=== PATIENT | female | born 1955 | race American Indian/Alaskan Native ===

== ENCOUNTER 2017-05-18 10:21 | Outpatient (CLI) | payer BC, OTHER | END 2017-05-18 10:22 | disposition home or self-care (01) | LOC: LABHHL 10:21 | PROVIDERS: ATTEND Surgery | DX: C50.912 Malignant neoplasm of unspecified site of left female breast (principal) | CPT/HCPCS: 88305; 88342; 88361 ==

== ENCOUNTER 2017-06-05 02:50 | Outpatient (CLI) | payer BC ==
--- NOTE | 2017-06-06 16:22 | Magnetic Resonance Report ---
BILATERAL BREAST MRI WITHOUT AND WITH CONTRAST: 06/05/17 15:00:00 CLINICAL: Newly diagnosed left breast cancer. Status post ultrasound-guided needle biopsy of the left breast at 2 sites 05/17/17. Biopsy at 12 o'clock 4 cm from the nipple revealed scattered foci of invasive carcinoma of the special type in a background of extensive ductal carcinoma in situ, intermediate nuclear grade, Ventura histologic grade moderately differentiated. Biopsy at 12 o'clock 2 cm from the nipple revealed similar pathology. COMPARISON:05/14/17 bilateral mammogram.. TECHNIQUE: Axial 1.0-mm T1 without, axial high resolution 2.0-mm T2 and axial 1.0-mm dynamic Vibrant high-resolution postcontrast T1 fat saturation sequences on a 1.5 Karley magnet. The examination was performed with an 8 channel dedicated Sentinelle breast coil. Post processing with CAD and subtraction was performed on an [employer] workstation. 15.0 cc of Multihance was injected for the contrast portion of the exam. Consent was obtained prior to the administration of the contrast. The patient vomited with the contrast injection. FINDINGS: The quality of the examination is degraded by patient motion and resultant misregistration on most of the sequences. Right: Marked background parenchymal enhancement. No mass or suspicious enhancement. No suspicious lymph nodes. Left: The left breast is larger than the right. Marked background parenchymal enhancement. An irregular enhancing mass in the upper inner quadrant correlates with the known cancer and measures 6.7 x 4.9 x 3.4 cm. It demonstrates heterogeneous enhancement with extension at its, 541% peak enhancement and 35% type III washout. Both biopsy clips are identified within this mass. A second mass is located subareolar and measures 3.7 x 3.2 x 1.9 cm in the lower inner quadrant. It demonstrates heterogeneous enhancement with mixed kinetics, 163% peak enhancement and 21% type III washout. 2 suspicious level I axillary lymph nodes. The largest measures 1.6 cm with a cortical thickness and 5 mm. IMPRESSION: 1. Multicentric left breast cancer and two suspicious level I axillary lymph nodes. 2. Negative right breast. RIGHT BI-RADS 1 -- Negative LEFT BI-RADS 6 -- Known Cancer
== END 2017-06-05 02:51 | disposition home or self-care (01) ==
LOC: SPVIMAG 02:50
PROVIDERS: ATTEND Surgery
DX: C50.412 Malignant neoplasm of upper-outer quadrant of left female breast (principal)
CPT/HCPCS: A9577; C8908; 77059

== ENCOUNTER 2017-06-19 14:39 | Outpatient (CLI) | payer BC ==
--- NOTE | 2017-06-20 13:47 | Magnetic Resonance Report ---
BILATERAL BREAST MRI WITHOUT AND WITH CONTRAST: 06/19/17 14:39:00 CLINICAL: Newly diagnosed left breast cancer. Status post ultrasound-guided needle biopsy of the left breast at 2 sites 05/17/17. Biopsy at 12 o'clock 4 cm from the nipple revealed scattered foci of invasive carcinoma of type in a background of extensive ductal carcinoma in situ, intermediate nuclear grade. Biopsy at 12 o'clock 2 cm from the nipple revealed similar pathology. This study is being repeated since the prior examination was compromised by patient motion after she vomited at the time of the contrast injection. Although I did render a report for that examination, the current examination is of superior quality and should supplant that exam and report. COMPARISON:05/14/17 bilateral mammogram and 06/05/17 breast MRI. TECHNIQUE: Axial 1.0-mm T1 without, axial high resolution 2.0-mm T2 and axial 1.0-mm dynamic Vibrant high-resolution postcontrast T1 fat saturation sequences on a 1.5 Karley magnet. The examination was performed with an 8 channel dedicated Sentinelle breast coil. Post processing with CAD and subtraction was performed on an [employer] workstation. 19.0 cc of Multihance was injected without incident for the contrast portion of the exam. Consent was obtained prior to the administration of the contrast. FINDINGS: Right: Marked background parenchymal enhancement. No mass or suspicious enhancement. No suspicious lymph nodes. Left: Marked background parenchymal enhancement. An irregular enhancing mass extends from twelve to 1 o'clock approximately 6.3 cm from the nipple measures approximately 2.3 x 1.2 x 1.0 cm. A biopsy clip is identified adjacent to the mass. It demonstrates heterogeneous enhancement with mixed kinetics, 410% peak enhancement and 52% type III washout. This mass and a second biopsy clip posterior to the nipple at 12 o'clock are encompassed by extensive reticular non-Mass enhancement. The mass plus the non-Mass enhancement together measure approximately 6.5 x 3.5 x 3.3 cm. The non-Mass enhancement extends to within 17 mm of the nipple. No other enhancing mass is identified. Two suspicious lymph nodes in the axillary tail. The larger measures 1.3 cm with a cortical thickness of 6 mm. A more posterior lymph node has no central fat and measures 1.1 x 0.4 cm. IMPRESSION: 1. Multicentric left breast cancer. Highly suspicious non-Mass enhancement at 12 to 1 o'clock in the left breast measures 6.5 x 3.5 x 3.3 cm and encompasses a 2.3 cm solid mass and the two biopsy positive sites of cancer. 2. Two suspicious left axillary tail lymph nodes. 3. Negative right breast. RIGHT BI-RADS 1 -- Negative LEFT BI-RADS 6 -- Known Cancer
== END 2017-06-19 14:40 | disposition home or self-care (01) ==
LOC: SPVIMAG 14:39
PROVIDERS: ATTEND Surgery
DX: C50.412 Malignant neoplasm of upper-outer quadrant of left female breast (principal)
CPT/HCPCS: A9577; C8908; 77059

== ENCOUNTER 2017-06-27 12:47 | Outpatient (CLI) | payer BC ==
--- NOTE | 2017-06-27 16:10 | Ultrasound Report ---
ULTRASOUND GUIDED NEEDLE CORE BIOPSY OF A LEFT AXILLARY LYMPH NODE WITH CLIP PLACEMENT : 06/27/17 12:47:00 CLINICAL: Known left breast cancer and 2 suspicious lymph nodes by recent MRI. COMPARISON :06/19/17 MRI Breast FINDINGS: The procedure was explained to the patient and informed consent was obtained. Ultrasound demonstrated two lymph nodes in the axillary tail this correlate with the MRI finding. However, the larger lymph node demonstrates no cortical thickening with the cortex measuring less than 4 mm. A smaller lymph node has minimal if any central fat. I chose this lymph node for biopsy. The skin in the axilla was prepped with Betadine and anesthetized with 1% lidocaine. Ultrasound guided needle core biopsy of the lymph node was performed through a small dermatotomy using 2% lidocaine with epinephrine for deep anesthesia and a 18-gauge Achieve biopsy device. 2 samples were obtained and placed in formalin. A clip was deployed within the lymph node. Hemostasis was achieved with minimal pressure and a sterile dressing was applied. The patient tolerated the procedure well and there were no apparent complications. She was discharged in good condition and was given instructions for wound care and followup. IMPRESSION: Uncomplicated ultrasound-guided needle core biopsy of a left lymph node with clip placement.
== END 2017-06-27 12:48 | disposition home or self-care (01) ==
LOC: SPVWC 12:47
PROVIDERS: ATTEND Surgery
DX: C50.411 Malignant neoplasm of upper-outer quadrant of right female breast (principal)
CPT/HCPCS: 38505; 88305; 88342

== ENCOUNTER 2017-07-25 08:33 | Inpatient (IN) | payer BC ==
--- NOTE | 2017-07-24 18:24 | XRay Report ---
FINAL REPORT EXAM: XR CHEST ROUTINE 2V HISTORY: PRE SURGICAL X-RAY. TECHNIQUE: 2 views of the chest. PRIORS: None. FINDINGS: The cardiomediastinal silhouette appears normal. There is a small focal area smooth pleural thickening in the left lateral lung base. Otherwise, the lungs are clear. The bones and soft tissues are unremarkable. IMPRESSION: Small focal area of smooth pleural thickening in left lateral lung base. This may represent pleural scar although a pleural based mass cannot be excluded. Recommend comparison with prior chest x-rays if there are any available. If not then follow-up chest x-ray is recommended 6-8 weeks. No evidence of acute cardiopulmonary disease
[2017-07-25] MEDS ORDERED: DIPRIVAN 10 MG/ML IV ONE (09:29)
[2017-07-25] MEDS ORDERED: SUBLIMAZE ONE (09:30)
[2017-07-25] MEDS ORDERED: ZOFRAN IV PRN ×2 (09:50→13:38)
[2017-07-25] MEDS ORDERED: DILAUDID IV PRN (09:50)
[2017-07-25] MEDS ORDERED: TORADOL IV PRN (09:50)
[2017-07-25] MEDS ORDERED: NARCAN 0.4 MG/1 ML IV PRN (09:50)
[2017-07-25] MEDS ORDERED: DEMEROL IV PRN (09:50)
[2017-07-25] MEDS ORDERED: ANCEF/STERILE WATER 2 GM/20 ML IV NR (10:00)
[2017-07-25] MEDS ORDERED: ZOFRAN IV NR (10:00)
[2017-07-25] MEDS ORDERED: VERSED IV NR (10:00)
[2017-07-25] MEDS ORDERED: LACTATED RINGERS 1,000 ML IV SCH ×3 (10:00→14:00)
--- NOTE | 2017-07-25 10:12 | Anesthesia Consultation ---
Anesthesia Consult and Med Hx Date of service: 07/25/17 - Airway Anesthetic Teeth Evaluation: Poor ROM Head & Neck: Adequate Mental/Hyoid Distance: Adequate Mallampati Class: Class III Intubation Access Assessment: Probably Good - Pre-Operative Health Status ASA Pre-Surgery Classification: ASA2 Proposed Anesthetic Plan: General - Pre-Anesthesia Comment Pre-Anesthesia Comments: Tolerates 6 METS. TEREZA: does not use CPAP. Glaucoma: beware or central anticholinesterases. No Motion sickness or N/V - Pulmonary Hx Smoking: Yes (FOR ABOUT 4 YEARS, QUIT IN 06/2016) Hx Asthma: No Hx Respiratory Symptoms: No SOB: No COPD: No Hx Sleep Apnea: Yes - Cardiovascular System Hx Hypertension: No Hx Coronary Artery Disease: No Hx Heart Attack/AMI: No Hx Angina: No - Central Nervous System Hx Neuromuscular Disorder: No Hx Seizures: No CVA: No Hx Psychiatric Problems: No - Gastrointestinal Hx Gastroesophageal Reflux Disease: No - Endocrine Hx Renal Disease: No - Other Systems Hx Alcohol Use: Yes (OCCAS) Hx Substance Use: No Hx Cancer: Yes Hx Obesity: Yes
--- NOTE | 2017-07-25 10:14 | Anesthesia Day of Surgery ---
Anesthesia Day of Surgery - Day of Surgery Patient Examined: Yes Patient H&P Reviewed: Yes Patient is NPO: Yes
[2017-07-25] MEDS ORDERED: ANCEF ONE (12:33)
[2017-07-25] MEDS ORDERED: GARAMYCIN ONE (12:33)
[2017-07-25] MEDS ORDERED: BACITRACIN ONE (12:34)
[2017-07-25] MEDS ORDERED: NACL 0.9% 1000 ML 1,000 ML ONE ×2 (12:35→19:02)
--- NOTE | 2017-07-25 13:06 | Short Stay Summary ---
Short Stay Documentation Date of service: 07/25/17 - History H&P: obtained from office - Allergies and Medications Current Medications: Allergies No Known Allergies Allergy (Verified 07/23/17 16:48) Home Medications Medication Instructions Recorded Confirmed Last Taken Type Brimonidine/Timolol 0.2-0.5% 1 drop OP BID 07/23/17 07/25/17 07/25/17 07:00 History [Combigan 0.2-0.5%] Latanoprost 0.005% 1 drop OP QHS 07/23/17 07/25/17 07/25/17 07:00 History Active Medications Hydromorphone HCl (Dilaudid) 0.25 mg IV Q10MIN PRN PRN Reason: Pain, Moderate (4-6) Stop: 07/25/17 23:59 Hydromorphone HCl (Dilaudid) 0.5 mg IV Q10MIN PRN PRN Reason: Pain , Severe (7-10) Stop: 07/25/17 23:59 Lactated Ringer's (Lactated Ringers) 1,000 mls @ 125 mls/hr IV DIRECT GE Last Admin: 07/25/17 10:25 Dose: 125 mls/hr Lactated Ringer's (Lactated Ringers) 1,000 mls @ 100 mls/hr IV DIRECT GE Ketorolac Tromethamine (Toradol) 15 mg IV ONCE PRN PRN Reason: Pain, Mild (1-3) Meperidine HCl (Demerol) 25 mg IV ONCE PRN PRN Reason: Shivering Stop: 07/25/17 23:59 Midazolam HCl (Versed) 2 mg IV PREOP NR Stop: 07/25/17 23:59 Last Admin: 07/25/17 10:31 Dose: 2 mg Naloxone HCl (Narcan 0.4 Mg/1 Ml) 0.1 mg IV Q2MIN PRN PRN Reason: Res Rate </= 8 or 02 SAT < 92% Stop: 07/25/17 23:59 Ondansetron HCl (Zofran) 4 mg IV ONCE PRN PRN Reason: Nausea And Vomiting - Brief post op/procedure progress note Date of procedure: 07/25/17 Pre-op diagnosis: Left breast cancer of the upper outer quadrant Post-op diagnosis: same Procedure: Left total mastectomy with SLNB and right total mastectomy Anesthesia: MARCUS Surgeon: JENI ANSARI Office Machine Installer: SALLY UREÑA Estimated blood loss: minimal Pathology: list (bilateral mastectomy and left SLNB) Specimen disposition: to lab Condition: stable - Disposition Condition at discharge: Good Disposition: DC/TX-02 SHRT-TRM GEN HOSP IP Short Stay Discharge Plan Activity: other (no heavy lifting) Diet: regular Wound: other (may shower in 24 hours; do not rub or scrub incision; per plastics as well) Follow up with: DELILAH OCHOA MD [Primary Care Provider] - 7 Days JENI ANSARI MD [Staff Physician] - 7 Days
--- NOTE | 2017-07-25 13:15 | Operative Report ---
Operative Report Operative Report: Date of Service: July 25, 2017 Preoperative diagnosis: Multifocal left breast cancer of the upper outer quadrant Postoperative diagnosis: Same Procedure: Right total mastectomy and left total mastectomy with sentinel lymph node biopsy Surgeon: Nelida Conner M.D. Asst.: Milena Infante MD Anesthesia: Gen. Findings: Left breast clips present within left total mastectomy. 4 sentinel lymph nodes identified and negative for malignancy on frozen section of pathology Complications: None Drains: per plastic surgery Estimated blood loss: Minimal Disposition: PACU in good condition Indications for operative procedure: This is a 61-year-old lady with Stage I/II multifocal left breast cancer of the upper outer quadrant. Recommendations were to proceed with left mastectomy given multifocal breast cancer and she wished to proceed with a prophylactic right total mastectomy. Patient wished to proceed with plastic reconstructive surgery. Procedure in detail: The patient was taken to the operating room and was placed supine. Gen. anesthesia was administered. The left nipple was injected with radioisotope and 1cc methylene blue with 1 cc of saline. Ultrasound was used to abdirahman area of known left breast cancer at the 12:00 position 4-5 cm from the nipple. Bilateral breast were prepped and draped in the normal sterile operative fashion. Timeout was performed. Typical mastectomy incision markings were made with left mastectomy marking to include known breast cancer at the 12: 00 position. Attention was taken towards the right breast first. A skin incision was made with a 10 blade knife and dissection taken down to the subcutaneous tissues. First began raising of the superior flap to the level of the clavicle superiorly and posteriorly to the pectoralis muscle. Followed by raising of the medial flap to the level of the sternum and posteriorly to the pectoralis muscle. Followed by raising of the lateral flap to the level of the latissimus dorsi muscle and taken down posteriorly. Followed by raising of the inferior flap to the level of the inframammary fold taken posterior to the pectoralis muscle. The mastectomy/breast was removed from the pectoralis muscle without incident. The specimen was appropriately marked and sent to pathology. Hemostasis was obtained with the bovie cautery. Attention was taken towards the left breast. A gamma probe was inserted into the axilla to identify the sentinel lymph node location. A skin incision was made with a 10 blade knife and dissection taken down to the subcutaneous tissues. First began raising of the superior flap to the level of the clavicle superiorly and posteriorly to the pectoralis muscle. Followed by raising of the medial flap to the level of the sternum and posteriorly to the pectoralis muscle. Followed by raising of the lateral flap to the level of the latissimus dorsi muscle and taken down posteriorly. The gamma probe was inserted into the axilla, the axillary fascia was opened and 4 sentinel lymph nodes were identified and dissected free, all remaining counts were less than 10% of the highest SLN. Lymph nodes were sent to pathology with findings negative for malignancy noted on frozen section. Then proceeded with raising of the inferior flap to the level of the inframammary fold taken posterior to the pectoralis muscle. The mastectomy/breast was removed from the pectoralis muscle without incident. The specimen was appropriately marked and sent to radiology with findings of 2 breast clips present and sent to pathology. Hemostasis was obtained with the bovie cautery. Plastic surgery then proceeded with bilateral tissue strapper placement.
[2017-07-25] MEDS ORDERED: METHYLENE BLUE ONE ×2 (13:32→15:09)
[2017-07-25] MEDS ORDERED: NACL P/F VIAL (10 ML) 10 ML ONE (13:36)
[2017-07-25] MEDS ORDERED: TYLENOL PO PRN (13:38)
[2017-07-25] MEDS ORDERED: REGLAN PO PRN (13:38)
[2017-07-25] MEDS ORDERED: SODIUM CHLORIDE FLUSH SYRINGE 10 ML IV PRN (13:38)
[2017-07-25] MEDS ORDERED: PERCOCET 5/325 PO PRN ×2 (13:38→22:25)
[2017-07-25] MEDS ORDERED: BENADRYL PO PRN (13:38)
[2017-07-25] MEDS ORDERED: ANCEF/NS 1 GM/50 ML 1 GM/50 ML BAG IV SCH (14:00)
[2017-07-25] MEDS ORDERED: ZEMURON IV ONE (14:05)
[2017-07-25] MEDS ORDERED: METHYLENE BLUE IV ONE ×2 (14:33)
[2017-07-25] MEDS ORDERED: BACITRACIN IR ONE (14:35)
[2017-07-25] MEDS ORDERED: ANCEF IR ONE (14:37)
[2017-07-25] MEDS ORDERED: NEOSTIGMINE ONE (16:51)
[2017-07-25] MEDS ORDERED: ZOFRAN ONE (16:51)
[2017-07-25] MEDS ORDERED: ROBINUL ONE (16:51)
--- NOTE | 2017-07-25 17:08 | Post Operative Note ---
Pre-op diagnosis: left breast cancer Post-op diagnosis: same Findings: left breast cancer Procedure: bilateral breast reconstruction with tissue expanders and biologic mesh Anesthesia: GETA Surgeon: JOSÉ LIVINGSTON Estimated blood loss: 50-100ml Pathology: none Condition: stable Disposition: PACU
[2017-07-25] MEDS: DILAUDID IV PRN ×4 (17:40→18:25)
[2017-07-25] MEDS ORDERED: NORMODYNE IV PRN (19:01)
--- NOTE | 2017-07-25 20:58 | Post Anesthesia Evaluation ---
- Post Anesthesia Evaluation Patient Participated: Yes Airway Patent: Yes Stable Respiratory Function: Yes Nausea/Vomiting: No Temp > 96.8F: Yes Pain Manageable: Yes Adequeate Hydration: Yes Anesthesia Complications: No
[2017-07-25] MEDS: COLACE PO SCH (21:39)
[2017-07-25] MEDS: ceFAZolin 1 GM in NACL 0.9% 20 ML IV SCH (21:48)
[2017-07-25] MEDS: NEURONTIN PO SCH ×2 (22:59→23:21)
[2017-07-25] MEDS: MORPHINE IV PRN (23:23)
--- NOTE | 2017-07-26 | Operative Report ---
PREOPERATIVE DIAGNOSIS: Left-sided breast cancer. POSTOPERATIVE DIAGNOSIS: Left-sided breast cancer. PROCEDURE: 1. Bilateral breast reconstruction immediate with tissue director of admissions, CPT code 18166-40. 2. Bilateral breast reconstruction with implantation of biological implant, FlexHD, CPT code 19756-90. 3. Application of negative pressure wound VAC device, CARLOTA, to bilateral breasts for postoperative wound healing, CPT code 77165-98. SURGEON: Tyson Lomas MD SAP MOBILITY ARCHITECT: None. ANESTHESIA: General. OPERATIVE INDICATIONS: This is a 61-year-old female who was referred to ri for newly diagnosed left breast cancer. Plan was to undergo bilateral mastectomy and options for reconstruction were given to the patient. Given her smoking history and her weight, we decided on a tissue director of admissions reconstruction as it had the lowest rate of complications and we could then proceed with autologous reconstruction in the future if she was able to quit smoking and lose weight. Risks and benefits of surgery were discussed with the patient and she agreed. OPERATIVE DETAILS: After informed consent was obtained, the patient was brought to the operating room and placed supine on the operating table. Preoperative antibiotics and general anesthesia were administered. The patient was prepped and draped in usual sterile fashion. A timeout was called verifying the patient and the operation being performed. Dr. Conner began the operation. Her portion will be dictated separately. I came into the room after she had completed the right-sided mastectomy. I assessed the defect, measured the chest wall, and then elevated the pectoralis major muscle creating a subpectoral pocket and divided inferiorly. I then took a Cameron ArtForce-Aa high profile 600 mL tissue director of admissions, serial [id number] and placed in the subpectoral pocket and secured to the chest wall using the suture tabs. I then took a piece of FlexHD pliable perforated large mesh and secured that to the inframammary border and lateral breast border and the serial number on that was a [id number]. The air had been completely removed from the tissue director of admissions and had been soaked in triple antibiotic irrigation and at this point, we then completed the reconstruction by sewing the pectoralis major muscle to the FlexHD. I placed two 15-Austrian Pablo drains into the prepectoral space. We then placed 200 mL of saline into the tissue director of admissions and irrigated the pocket achieved hemostasis and closed, 2-0 Vicryl interrupted sutures were used to bring the flaps together and then a running 2-0 Monocryl barbed suture was used to close the skin. At this point, Dr. Conner was done with the left side. I assessed again a defect which was the mastectomy defect with sentinel node biopsy. We performed the same operation on that side. Again, making a subpectoral pocket and placing 600 mL Cameron Artoura high profile implant. The serial number on that one was [id number] and the mesh used on that side was serial number [id number]. The implant was completely covered with a pectoralis major and FlexHD, they were sewn together and then 200 mL of saline was placed in the director of admissions as well. A 19 and 15-Austrian Pablo drain were placed on that side in the prepectoral space. Irrigation was performed, hemostasis was achieved and the wound was closed with 2-0 Vicryl sutures and a running 2-0 Monocryl barbed suture. At the completion of the case in order to assist with wound healing, a CARLOTA negative pressure wound VAC device was applied to both incisions. A seal was obtained. Suction was adequate and there was no leak. The patient tolerated the procedure well, was awakened from general anesthesia, transferred to PACU in stable condition. ESTIMATED BLOOD LOSS: 100 mL. COMPLICATIONS: None. SPECIMENS: None per my portion of the procedure. IMPLANTS: See above. FINDINGS: Bilateral mastectomy defects. JOB# [id number] Molina/OLIVER
[2017-07-26] MEDS: MORPHINE IV PRN ×3 (02:56→16:23)
[2017-07-26] MEDS: NEURONTIN PO SCH ×2 (05:25→16:34)
[2017-07-26] MEDS: ceFAZolin 1 GM in NACL 0.9% 20 ML IV SCH (05:25)
[2017-07-26] MEDS ORDERED: SUBLIMAZE IV NR (07:47)
--- NOTE | 2017-07-26 09:41 | Discharge Summary ---
Providers - Providers Date of Admission: 07/25/17 13:38 Date of discharge: 07/26/17 Attending physician: JENI ANSARI Primary care physician: DELILAH OCHOA Hospitalization Reason for admission: pain control and monitor for bleeding Procedures: bilateral mastectomy and reconstruction with expanders Hospital course: admitted for pain control and drain teaching. Sent home once pain controlled. Disposition: DC- TO HOME OR SELFCARE Core Measure Documentation - Palliative Care Palliative Care/ Comfort Measures: Not Applicable - Core Measures Any of the following diagnoses?: none Exam - Physical Exam Narrative exam: RRR Unlabored BREASTS with expanders in place, no hematoma. Drains serousang. PICOs in place. - Constitutional Vitals: Temp Pulse Resp BP Pulse Ox 98.9 F 95 H 24 149/75 96 07/26/17 07:21 07/26/17 07:21 07/26/17 07:55 07/26/17 07:21 07/26/17 07:21 Plan Activity: advance as tolerated Weight Bearing Status: Full Weight Bearing Diet: regular Wound: drain care as instructed, other (leave CARLOTA dressings in place) Follow up with: JENI ANSARI MD [Staff Physician] - 7 Days DELILAH OCHOA MD [Primary Care Provider] - 7 Days JOSÉ LIVINGSTON MD [Staff Physician] - 7 Days
[2017-07-26] MEDS: FLEXERIL PO PRN (10:10)
[2017-07-26] MEDS: COLACE PO SCH (10:10)
[2017-07-26] MEDS ORDERED: SUBLIMAZE IV ONE (11:55)
--- NOTE | 2017-07-26 13:00 | XRay Report ---
Operative specimen mammogram: A single tissue specimen is submitted. A marker is present in the central portion of the specimen at the margin of an ill-defined area of parenchymal density. These are well within the specimen margins.
[2017-07-26] MEDS: TORADOL IV SCH ×2 (14:25→20:44)
[2017-07-27] MEDS: NEURONTIN PO SCH (00:05)
[2017-07-27] MEDS: DILAUDID PO PRN ×3 (01:04→12:54)
[2017-07-27] MEDS: FLEXERIL PO PRN ×2 (02:35→10:45)
[2017-07-27] MEDS: TORADOL IV SCH (02:46)
[2017-07-27] MEDS: ceFAZolin 1 GM in NACL 0.9% 20 ML IV SCH (03:34)
[2017-07-27] MEDS ORDERED: NEURONTIN PO SCH (06:00)
[2017-07-27] MEDS ORDERED: MOTRIN PO PRN (06:15)
--- NOTE | 2017-07-27 08:01 | Progress Note ---
Assessment and Plan POD 2 s/p bilateral tissue customs officer reconstruction -unclear as to reason for severe pain -will switch to dilaudid PO, increase gabapentin, start flexeril and motrin and see how she does -possible discharge later today if pain can be better controlled. Subjective Date of service: 07/27/17 Narrative: Patient was setup to discharge yesterday but started having more pain that was not responding to medication. We have tried multiple different modalities. Per nursing report, patient is usually asleep and comfortable, but upon entering room she awakens and then complains of 10/10 pain. Not sure what the driving force is. Because of that, we had to stop her discharge and keep her overnight. She states she is feeling a little better but still having really bad spasms and pains. Objective Vital Signs - 12hr 07/26/17 07/26/17 07/26/17 20:05 20:44 21:14 Temperature 98.3 F Pulse Rate 100 H Respiratory 20 20 18 Rate Blood Pressure 142/92 [Left] 07/27/17 07/27/17 07/27/17 00:00 01:04 02:04 Temperature 98.2 F Pulse Rate 88 Respiratory 20 18 20 Rate Blood Pressure 165/85 [Left] 07/27/17 07/27/17 07/27/17 02:46 03:16 04:15 Temperature 98.4 F Pulse Rate 84 Respiratory 18 16 20 Rate Blood Pressure 126/83 [Left] - General physical appearance Narrative Exam: RRR Unlabored BREASTS with expanders in place, no hematoma. Drains serousang. PICOs in place. There is no sign of bleeding or complication I can see on exam to explain her intense pain
[2017-07-27] MEDS: COLACE PO SCH (10:45)
[2017-07-27 14:11] VITALS: BP 134/74
== END 2017-07-27 15:20 | disposition home or self-care (01) | DRG 581 ==
LOC: OR 08:33 → OB 13:38 → OBSVTOIN 07-27 08:09
PROVIDERS: ADMIT Surgery; ATTEND Surgery
PROC: 0HTV0ZZ Resection of Bilateral Breast, Open Approach (ICD-10-PCS; principal; 2017-07-25)
PROC: 07B60ZX Excision of Left Axillary Lymphatic, Open Approach, Diagnostic (ICD-10-PCS; principal; 2017-07-25)
PROC: 0HHV0NZ Insertion of Tissue Expander into Bilateral Breast, Open Approach (ICD-10-PCS; 2017-07-25)
PROC: 0HRV0JZ Replacement of Bilateral Breast with Synthetic Substitute, Open Approach (ICD-10-PCS; 2017-07-25)
PROC: 0HTV0ZZ Resection of Bilateral Breast, Open Approach (ICD-10-PCS; 2017-07-25)
DX: C50.412 Malignant neoplasm of upper-outer quadrant of left female breast (principal); G47.33 Obstructive sleep apnea (adult) (pediatric); H40.9 Unspecified glaucoma; C50.812 Malignant neoplasm of overlapping sites of left female breast; F17.210 Nicotine dependence, cigarettes, uncomplicated; E66.9 Obesity, unspecified; Z68.36 Body mass index [BMI] 36.0-36.9, adult
CPT/HCPCS: 71046; 76098; 78800; 88307; 88309; 88331; 88333; 88342; 93005; 93010; A9541; C1789; G0378; J0690; J1170; J1580; J1885; J2175; J2250; J2270; J2405; J2704; J2710; J3010; J7030; J7120; Q4128; Q9968

== ENCOUNTER 2017-08-14 10:54 | Outpatient (CLI) | payer BC ==
--- NOTE | 2017-08-15 09:39 | Mammography Report ---
BONE DENSITY STUDY: Osteoporosis screening. DEFINITIONS: BMD = Bone Mineral Density T-score = BMD related to mean peak bone mass of young adult (mean expressed in Standard Deviation) Z-score = Age matched BMD expressed in SD World Health Organization (WHO) Diagnostic Criteria Normal T-score > -1 SD Osteopenia T-score between -1 and -2.4 SD Osteoporosis T-score -2.5 SD or below FINDINGS: The weighted average BMD of lumbar spine L1-L4 is 0.769 with a T-score of -3.5. The weighted average BMD of the right hip is 0.834 with a T-score of -1.3. IMPRESSION: The patient's average T-score is diagnostic for osteoporosis and high relative risk for fracture. NOTE: BMD is not the only risk factor for fracture; also consider factors such as the patient's age, risk of falling, previous osteoporotic fracture, family history of osteoporotic fractures, current smoker, and low body weight. Velazquez's triangle is a region of interest in femur, predominantly of trabecular bone. It is not a true anatomic site, and [facility] does not recommend its use clinically.
== END 2017-08-14 10:55 | disposition home or self-care (01) ==
LOC: SPVWC 10:54
PROVIDERS: ATTEND Internal Medicine Hematology & Oncology
DX: M81.0 Age-related osteoporosis without current pathological fracture (principal); C50.412 Malignant neoplasm of upper-outer quadrant of left female breast
CPT/HCPCS: 77080

== ENCOUNTER 2019-01-21 09:10 | Outpatient (CLI) | payer BC, OTHER | END 2019-01-21 09:11 | disposition home or self-care (01) | LOC: LABHHL 09:10 | PROVIDERS: ATTEND Surgery | DX: N60.01 Solitary cyst of right breast (principal); Z90.710 Acquired absence of both cervix and uterus | CPT/HCPCS: 88112 ==

== ENCOUNTER 2020-08-25 10:59 | Outpatient (CLI) | payer BC ==
--- NOTE | 2020-08-25 13:46 | Mammography Report ---
DEXA BONE DENSITY SCAN INDICATION / CLINICAL INFORMATION: AGE RELATED OSTEOPOROSIS W/O CURRENT PATHOLOGICAL FRACTURE M81.0. 64 years Female COMPARISON: 08/14/2017 LUMBAR SPINE, L1-L4: - Bone mineral density (BMD) = 0.838 g/cm2. - T-score = -2.8 - Z-score = -1.0 Change (%) since most recent prior (if available): -2.4 LEFT HIP, NECK : - Bone mineral density (BMD) = 0.835 g/cm2. - T-score = -0.8 - Z-score = 0.4 Change (%) since most recent prior (if available): None available. IMPRESSION: 1. WHO Classification: Osteoporosis. Fracture Risk: High. BMD Reporting Guidelines (ISCD, 2015) BMD Reporting in Postmenopausal Women and in Men Age 50 and Older * T-scores are preferred. * The WHO densitometric classification is applicable. BMD Reporting in Females Prior to Menopause and in Males Younger Than Age 50 * Z-scores, not T-scores, are preferred. This is particularly important in children. * A Z-score of -2.0 or lower is defined as below the expected range for age, and a Z-score above -2. 0 is within the expected range for age. * Osteoporosis cannot be diagnosed in men under age 50 on the basis of BMD alone. * The WHO diagnostic criteria may be applied to women in the menopausal transition. http://www.iscd.org/official-positions/1132-vfnt-zdvjtfrr-positions-adult/ Signer Name: Mateo Wilson MD Signed: 08/25/2020 1:41 PM Workstation Name: [email or web address]
== END 2020-08-25 11:00 | disposition home or self-care (01) ==
LOC: SPVWC 10:59
PROVIDERS: ATTEND Internal Medicine Hematology & Oncology
DX: M81.0 Age-related osteoporosis without current pathological fracture (principal); C50.412 Malignant neoplasm of upper-outer quadrant of left female breast
CPT/HCPCS: 77080